=== PATIENT | male | born 1990 | race African-American/Black ===

== ENCOUNTER 2016-10-09 17:27 | Emergency (ER) | payer MEDICAID ==
[~2016-10-09] VITALS: Ht 175.3 cm; Wt 65.0 kg
[~2016-10-09 17:27] MED LIST: BACLOFEN10 MG PO; BACTRIM DS1 TAB PO; CIPROFLOXACN500 MG PO; DILAUDID 2MG2 MG/TA1 PO; DULCOLAX SS100 MG PO; EQ MAGNESIUM CI1 SOL PO; MACRODANTIN100 MG PO; MORPHINE SUL30 M3 PO; NO; ULTRAM50 M1 PO; XANAX1 MG PO
[2016-10-09 18:06] VITALS: BP 139/102
== END 2016-10-09 18:31 | disposition home or self-care (01) | DRG 699 ==
LOC: ED 17:27
PROC: 0T2BX0Z Change Drainage Device in Bladder, External Approach (ICD-10-PCS; principal; 2016-10-09)
DX: T83.090A Other mechanical complication of cystostomy catheter, initial encounter (principal); G82.20 Paraplegia, unspecified; S14.104S Unspecified injury at C4 level of cervical spinal cord, sequela; S12.300S Unspecified displaced fracture of fourth cervical vertebra, sequela; V86.99XS Unspecified occupant of other special all-terrain or other off-road motor vehicle injured in nontraffic accident, sequela; Y83.8 Other surgical procedures as the cause of abnormal reaction of the patient, or of later complication, without mention of misadventure at the time of the procedure

== ENCOUNTER 2017-06-17 19:24 | Emergency (ER) | payer MEDICARE, MEDICAID ==
[~2017-06-17] VITALS: Ht 175.3 cm; Wt 63.6 kg
[2017-06-17 21:06] VITALS: BP 137/46
== END 2017-06-17 21:11 | disposition home or self-care (01) ==
LOC: ED 19:24
PROC: 0T2BX0Z Change Drainage Device in Bladder, External Approach (ICD-10-PCS; principal; 2017-06-17)
DX: T83.098A Other mechanical complication of other urinary catheter, initial encounter (principal)

== ENCOUNTER 2021-12-12 07:29 | Emergency (ER) | payer MEDICARE, MEDICAID ==
[~2021-12-12] VITALS: Ht 175.3 cm; Wt 77.3 kg
[2021-12-12] MEDS ORDERED: NITROFURANTN100 MG PO (07:44)
[2021-12-12] MEDS ORDERED: CIPROFLOXACN500 MG PO (07:46)
[2021-12-12 08:21] LABS: MEAN CELL VOLUME 88.4 fL CALC (80.0-100.0); MEAN CORPUSCULAR HGB 29.8 pG CALC (26.0-32.0); MEAN CORPUSCULAR HGB CONC 33.7 g/dL CAL (32.0-36.0); NEUT# 2.2 thou/uL (1.82-7.42); RED BLOOD COUNT 5.68 mill/uL (4.70-6.10); RED CELL DISTRI WIDTH 13.5 % (11.5-15.5)
[2021-12-12 08:26] LABS: HEMATOCRIT 50.2 % (39.0-50.0); HEMOGLOBIN 16.9 g/dl (14.0-18.0)
[2021-12-12 08:31] VITALS: BP 128/94
[2021-12-12 08:31] LABS: ALBUMIN 4.4 g/dL (3.2-5.0); ALKALINE PHOSPHATASE 109 u/l (38-126); ANION GAP 15 (6-22 (CALC)); BILIRUBIN, TOTAL 1.1 mg/dL (0.0-1.4); BUN 13 mg/dL (9-20); BUN/CREATININE RATIO 12 (12-20 (CALC)); CARBON DIOXIDE 23 mmol/l (22-30); CHLORIDE 105 mmol/l (95-108); GFR FOR AFR.AMER. > 60 ML/MIN (>=60 (CALC)); GFR OTHER RACES > 60 ML/MIN (>=60 (CALC)); POTASSIUM 4.2 mmol/l (3.5-5.1); SGOT/AST 31 u/l (17-59); SODIUM 139 mmol/l (137-146); TOTAL PROTEIN 8.6 g/dL (6.3-8.2)
[2021-12-12 08:54] LABS: URINE BILIRUBIN - DIPSTICK NEGATIVE (NEGATIVE); URINE BLOOD DIPSTICK LARGE (NEGATIVE); URINE COLOR YELLOW; URINE GLUCOSE - DIPSTICK NEGATIVE (NEGATIVE); URINE KETONE NEGATIVE (NEGATIVE); URINE LEUK ESTERASE TRACE (NEGATIVE); URINE PROTEIN - DIPSTICK 100 mg/dL (NEG-TRACE); URINE SPECIFIC GRAVITY >=1.030; URINE UROBILINOGEN - DIPSTICK 0.2 E.U./dL (0.2)
[2021-12-12 09:01] VITALS: BP 125/89
[2021-12-12 09:11] LABS: URINE NITRITE - DIPSTICK NEGATIVE (Negative)
[2021-12-12 09:12] LABS: URINE EPITHELIAL CELLS FEW EPI/hpf (0-FEW); URINE WBC 0-2 WBC/hpf (0-5)
[2021-12-12 09:32] VITALS: BP 101/85
[2021-12-12] MEDS ORDERED: PYRIDIUM200 MG PO (09:36)
== END 2021-12-12 10:08 | disposition home or self-care (01) ==
LOC: ED 07:29
PROVIDERS: Emergency Medicine
DX: N32.89 Other specified disorders of bladder (principal); G82.50 Quadriplegia, unspecified; Z93.51 Cutaneous-vesicostomy status